=== PATIENT | male | born 1960 | race Caucasian/White ===

== ENCOUNTER 2017-10-30 17:37 | Inpatient (IN) | payer MEDICAID ==
[2017-10-30] MEDS ORDERED: ASPIRIN 325 MG TAB PO (17:45)
[2017-10-30 17:57] LABS: ADD MAN DIFF? NO
[2017-10-30 18:00] LABS: BASOPHIL # 0.1 10^3/ul (0.0-0.1); BASOPHILS % 0.5 % (0.0-2.0); EOSINOPHILS # 0.4 10^3/ul (0.0-0.5); HEMATOCRIT 44.5 % (42.0-52.0); HEMOGLOBIN 15.6 g/dl (14.0-18.0); LYMPHOCYTES % 21.3 % (15.0-51.0); MEAN CORPUSCULAR HEMOGLOBIN 31.3 pg (29.0-33.0); MEAN CORPUSCULAR HGB CONC 35.1 g/dl (32.0-37.0); MEAN CORPUSCULAR VOLUME 89.2 fl (82.0-101.0); MEAN PLATELET VOLUME 10.9 fl (7.4-10.4); MONOCYTE # 0.8 10^3/ul (0.3-0.9); MONOCYTES % 8.3 % (0.0-11.0); NEUTROPHIL # 6.1 10^3/ul (1.6-7.5); NEUTROPHILS % 65.3 % (39.0-77.0); PLATELET COUNT 251 10^3/UL (140-415); RED BLOOD COUNT 4.99 10^6/ul (4.70-6.10); RED CELL DISTRIBUTION WIDTH 13.4 % (11.5-14.5)
[2017-10-30 18:00] LABS: WHITE BLOOD COUNT 9.4 10^3/ul (4.8-10.8)
[2017-10-30] MEDS ORDERED: ALTEPLASE 100 MG INJ IV* (18:00)
[2017-10-30] MEDS ORDERED: ALTEPLASE (tPA) 1 MG/ML BOLUS SYG IV* (18:00)
[2017-10-30 18:13] LABS: HEMOGLOBIN A1C 5.9 % (0-5.9)
[2017-10-30 18:29] LABS: INR 0.85; PARTIAL THROMBOPLASTIN TIME 25.2 Sec (25.0-35.0); PROTIME 11.7 Sec (11.9-14.9); PT RATIO 0.9
[2017-10-30 18:35] LABS: ANION GAP 16 (8-16); BLOOD UREA NITROGEN 11 mg/dl (7-20); CALCIUM 9.3 mg/dl (8.4-10.2); CARBON DIOXIDE 31 mmol/L (21-31); CHLORIDE 102 mmol/L (97-110); CHOL/HDL RATIO 6.1 RATIO; CHOLESTEROL 167 mg/dl (100-200); CREATININE 1.03 mg/dl (0.61-1.24); GLUCOSE 123 mg/dl (70-220); HDL CHOLESTEROL 27 mg/dl (28-71); LDL CHOLESTEROL,CALCULATED 69 mg/dl; POTASSIUM 3.4 mmol/L (3.5-5.1); SODIUM 146 mmol/L (135-144); TRIGLYCERIDES 353 mg/dl (0-149)
[2017-10-30] MEDS: SOD CHLORIDE 0.9% 100 ML (18:42)
[2017-10-30] MEDS: IOHEXOL 100 ML (18:43)
[2017-10-30] MEDS: SOD CHLORIDE 0.9% 50 ML IV (18:43)
[2017-10-30 18:46] LABS: TROPONIN-I < 0.012 ng/ml (0.00-0.12)
[2017-10-30] MEDS: SOD CHLORIDE 0.9% 1,000 ML IV (19:10)
[2017-10-30] MEDS: ENALAPRILAT 1.25 MG INJ IV (19:48)
[2017-10-30] MEDS: ASPIRIN 300 MG SUPP PR (19:48)
[2017-10-30 20:23] LABS: ADD UMIC NO; UR ASCORBIC ACID NEGATIVE (NEGATIVE); UR BILIRUBIN (Dip) NEGATIVE (NEGATIVE); UR BLOOD (Dip) NEGATIVE (NEGATIVE); UR CLARITY CLEAR (CLEAR); UR COLOR STRAW (YELLOW); UR GLUCOSE (Dip) NEGATIVE (NEGATIVE); UR KETONES (Dip) NEGATIVE (NEGATIVE); UR LEUKOCYTE ESTERASE (Dip) NEGATIVE Leu/ul (NEGATIVE); UR NITRITE (Dip) NEGATIVE (NEGATIVE); UR SPECIFIC GRAVITY (Dip) 1.028 (1.003-1.030); UR TOTAL PROTEIN (Dip) NEGATIVE (NEGATIVE); UR UROBILINOGEN (Dip) NEGATIVE (NEGATIVE)
[2017-10-30 20:36] LABS: AMPHETAMINE/METHAMPHETAMINE Negative (NEGATIVE); BARBITURATES Negative (NEGATIVE); BENZODIAZEPINES Negative (NEGATIVE); CANNABINOIDS Negative (NEGATIVE); COCAINE Negative (NEGATIVE); OPIATES Negative (NEGATIVE)
[2017-10-31] MEDS: DEXTROSE 5%-0.45% NACL 1,000 ML IV ×3 (01:40→23:25)
[2017-10-31 03:02] LABS: TROPONIN-I < 0.012 ng/ml (0.00-0.12)
[2017-10-31 06:48] LABS: ADD MAN DIFF? NO
[2017-10-31 06:55] LABS: WHITE BLOOD COUNT 11.5 10^3/ul (4.8-10.8)
[2017-10-31 06:55] LABS: BASOPHILS % 0.3 % (0.0-2.0); EOSINOPHILS # 0.1 10^3/ul (0.0-0.5); HEMATOCRIT 40.9 % (42.0-52.0); LYMPHOCYTES # 2.4 10^3/ul (0.8-2.9); LYMPHOCYTES % 20.5 % (15.0-51.0); MEAN CORPUSCULAR HEMOGLOBIN 31.3 pg (29.0-33.0); MEAN CORPUSCULAR HGB CONC 34.2 g/dl (32.0-37.0); MEAN CORPUSCULAR VOLUME 91.3 fl (82.0-101.0); MEAN PLATELET VOLUME 11.5 fl (7.4-10.4); MONOCYTE # 0.9 10^3/ul (0.3-0.9); MONOCYTES % 7.5 % (0.0-11.0); NEUTROPHIL # 8.1 10^3/ul (1.6-7.5); NEUTROPHILS % 70.1 % (39.0-77.0); PLATELET COUNT 230 10^3/UL (140-415); RED BLOOD COUNT 4.48 10^6/ul (4.70-6.10); RED CELL DISTRIBUTION WIDTH 13.6 % (11.5-14.5)
[2017-10-31 07:15] LABS: ALANINE AMINOTRANSFERASE 22 IU/L (13-69); ALBUMIN 3.7 g/dl (3.3-4.9); ALBUMIN/GLOBULIN RATIO 1.05; ALKALINE PHOSPHATASE 107 IU/L (42-121); ANION GAP 15 (8-16); ASPARTATE AMINO TRANSFERASE 20 IU/L (15-46); BILIRUBIN,INDIRECT 0.7 mg/dl (0-1.1); BILIRUBIN,TOTAL 0.7 mg/dl (0.2-1.3); BLOOD UREA NITROGEN 10 mg/dl (7-20); CALCIUM 8.3 mg/dl (8.4-10.2); CARBON DIOXIDE 30 mmol/L (21-31); CHLORIDE 104 mmol/L (97-110); CHOL/HDL RATIO 5.9 RATIO; CHOLESTEROL 149 mg/dl (100-200); CREATININE 1.07 mg/dl (0.61-1.24); GLUCOSE 157 mg/dl (70-220); HDL CHOLESTEROL 25 mg/dl (28-71); LDL CHOLESTEROL,CALCULATED 78 mg/dl; MAGNESIUM 1.9 mg/dl (1.7-2.5); PHOSPHORUS 3.5 mg/dl (2.5-4.9); SODIUM 146 mmol/L (135-144); TOTAL PROTEIN 7.2 g/dl (6.1-8.1); TRIGLYCERIDES 229 mg/dl (0-149)
[2017-10-31 07:21] LABS: TROPONIN-I < 0.012 ng/ml (0.00-0.12)
[2017-10-31] MEDS ORDERED: DEXTROSE 50% 50 ML SYRINGE IV ×2 (07:30)
[2017-10-31] MEDS ORDERED: GLUCOSE GEL 15 GRAM TUBE BUCCAL (07:30)
[2017-10-31] MEDS ORDERED: GLUCAGON 1 MG INJ IM (07:30)
[2017-10-31] MEDS ORDERED: GLUCOSE GEL 15 GRAM TUBE PO ×2 (07:30)
[2017-10-31 07:45] LABS: POTASSIUM 2.9 mmol/L (3.5-5.1)
[2017-10-31 08:24] LABS: THYROID STIMULATING HORMONE 0.467 MIU/L (0.465-4.680)
[2017-10-31 08:51] LABS: HEMOGLOBIN A1C 5.9 % (0-5.9)
[2017-10-31] MEDS: ASPIRIN (EC) 81 MG TAB PO (09:00)
[2017-10-31] MEDS: CLONIDINE 0.2 MG/24 HR PATCH TRANSDERM (09:08)
[2017-10-31] MEDS: HEPARIN 5,000 UNIT/0.5 ML VIAL SC ×2 (09:16→21:10)
[2017-10-31] MEDS: INSULIN ASPART [NOVOLOG] 3 ML PEN SC ×4 (09:16→21:00)
[2017-10-31] MEDS: FLUTICASONE 0.05% 16 GM NAS SPRAY NASAL ×2 (09:44→21:05)
[2017-10-31] MEDS: hydrALAzine 20 MG INJ IV ×2 (11:40→21:31)
[2017-10-31] MEDS ORDERED: POTASSIUM CITRATE (SR) 5 MEQ TAB PO (13:00)
[2017-10-31] MEDS: POTASSIUM CHLORIDE (SR) 20 MEQ TAB PO ×2 (15:52→15:53)
[2017-10-31] MEDS: POTASSIUM CHLORIDE 100 ML IVPB ×3 (17:22→23:24)
[2017-10-31] MEDS: ATORVASTATIN 40 MG TAB PO ×2 (21:00→21:05)
[2017-10-31] MEDS: INSULIN GLARGINE [LANtus] 3 ML PEN SC (21:10)
[2017-11-01] MEDS: ACCU-CHEK XX (02:00)
[2017-11-01] MEDS: POTASSIUM CHLORIDE 100 ML IVPB (02:37)
[2017-11-01] MEDS: INSULIN ASPART [NOVOLOG] 3 ML PEN SC ×6 (02:54→20:55)
[2017-11-01 06:22] LABS: ADD MAN DIFF? NO
[2017-11-01 06:33] LABS: WHITE BLOOD COUNT 10.1 10^3/ul (4.8-10.8)
[2017-11-01 06:33] LABS: BASOPHILS % 0.4 % (0.0-2.0); EOSINOPHILS # 0.1 10^3/ul (0.0-0.5); EOSINOPHILS % 1.3 % (0.0-7.0); HEMATOCRIT 40.2 % (42.0-52.0); HEMOGLOBIN 13.7 g/dl (14.0-18.0); LYMPHOCYTES # 1.9 10^3/ul (0.8-2.9); LYMPHOCYTES % 18.7 % (15.0-51.0); MEAN CORPUSCULAR HEMOGLOBIN 31.1 pg (29.0-33.0); MEAN CORPUSCULAR HGB CONC 34.1 g/dl (32.0-37.0); MEAN CORPUSCULAR VOLUME 91.2 fl (82.0-101.0); MEAN PLATELET VOLUME 11.5 fl (7.4-10.4); MONOCYTE # 0.9 10^3/ul (0.3-0.9); NEUTROPHIL # 7.1 10^3/ul (1.6-7.5); NEUTROPHILS % 70.3 % (39.0-77.0); PLATELET COUNT 208 10^3/UL (140-415); RED BLOOD COUNT 4.41 10^6/ul (4.70-6.10); RED CELL DISTRIBUTION WIDTH 13.4 % (11.5-14.5)
[2017-11-01 07:05] LABS: ANION GAP 12 (8-16); BLOOD UREA NITROGEN 8 mg/dl (7-20); CALCIUM 8.6 mg/dl (8.4-10.2); CARBON DIOXIDE 27 mmol/L (21-31); CHLORIDE 108 mmol/L (97-110); CREATININE 0.97 mg/dl (0.61-1.24); GLUCOSE 145 mg/dl (70-220); MAGNESIUM 1.8 mg/dl (1.7-2.5); POTASSIUM 3.3 mmol/L (3.5-5.1); SODIUM 144 mmol/L (135-144)
[2017-11-01] MEDS: DEXTROSE 5%-0.45% NACL 1,000 ML IV ×3 (07:30→21:45)
[2017-11-01] MEDS: ALBUTEROL/IPRATROPIUM (NEB) 3 ML AMP HHN ×3 (07:37→21:17)
[2017-11-01] MEDS: FLUTICASONE 0.05% 16 GM NAS SPRAY NASAL ×2 (08:43→20:56)
[2017-11-01] MEDS: ASPIRIN (EC) 81 MG TAB PO (08:43)
[2017-11-01] MEDS: HEPARIN 5,000 UNIT/0.5 ML VIAL SC ×2 (09:01→21:01)
[2017-11-01] MEDS: BARIUM SULFATE 135 ML (E-Z HD) PO (10:39)
[2017-11-01] MEDS: hydrALAzine 20 MG INJ IV (16:37)
[2017-11-01] MEDS: POTASSIUM CHLORIDE 50 ML IVPB ×2 (18:50→21:03)
[2017-11-01] MEDS: ATORVASTATIN 40 MG TAB PO (20:57)
[2017-11-01] MEDS: INSULIN GLARGINE [LANtus] 3 ML PEN SC (21:00)
[2017-11-02] MEDS: INSULIN ASPART [NOVOLOG] 3 ML PEN SC ×6 (01:00→21:00)
[2017-11-02] MEDS: ACCU-CHEK XX (01:29)
[2017-11-02 06:31] LABS: ADD MAN DIFF? NO
[2017-11-02 06:36] LABS: WHITE BLOOD COUNT 8.8 10^3/ul (4.8-10.8)
[2017-11-02 06:36] LABS: BASOPHILS % 0.3 % (0.0-2.0); EOSINOPHILS # 0.2 10^3/ul (0.0-0.5); EOSINOPHILS % 1.9 % (0.0-7.0); HEMATOCRIT 38.7 % (42.0-52.0); HEMOGLOBIN 13.3 g/dl (14.0-18.0); LYMPHOCYTES # 1.6 10^3/ul (0.8-2.9); LYMPHOCYTES % 18.5 % (15.0-51.0); MEAN CORPUSCULAR HEMOGLOBIN 31.1 pg (29.0-33.0); MEAN CORPUSCULAR HGB CONC 34.4 g/dl (32.0-37.0); MEAN CORPUSCULAR VOLUME 90.6 fl (82.0-101.0); MEAN PLATELET VOLUME 11.4 fl (7.4-10.4); MONOCYTE # 0.8 10^3/ul (0.3-0.9); MONOCYTES % 9.2 % (0.0-11.0); NEUTROPHIL # 6.1 10^3/ul (1.6-7.5); NEUTROPHILS % 69.8 % (39.0-77.0); PLATELET COUNT 195 10^3/UL (140-415); RED BLOOD COUNT 4.27 10^6/ul (4.70-6.10); RED CELL DISTRIBUTION WIDTH 13.7 % (11.5-14.5)
[2017-11-02 07:02] LABS: ANION GAP 13 (8-16); BLOOD UREA NITROGEN 7 mg/dl (7-20); CALCIUM 8.6 mg/dl (8.4-10.2); CARBON DIOXIDE 24 mmol/L (21-31); CHLORIDE 109 mmol/L (97-110); CREATININE 0.93 mg/dl (0.61-1.24); GLUCOSE 145 mg/dl (70-220); SODIUM 143 mmol/L (135-144)
[2017-11-02 08:09] LABS: MAGNESIUM 1.8 mg/dl (1.7-2.5)
[2017-11-02 08:21] LABS: TROPONIN-I < 0.012 ng/ml (0.00-0.12)
[2017-11-02] MEDS: DEXTROSE 5%-0.45% NACL 1,000 ML IV ×3 (08:27→18:32)
[2017-11-02] MEDS: ASPIRIN (EC) 81 MG TAB PO (08:31)
[2017-11-02] MEDS: FLUTICASONE 0.05% 16 GM NAS SPRAY NASAL ×2 (08:32→21:06)
[2017-11-02] MEDS: HEPARIN 5,000 UNIT/0.5 ML VIAL SC ×2 (08:40→21:07)
[2017-11-02] MEDS: hydrALAzine 20 MG INJ IV (11:51)
[2017-11-02] MEDS: POTASSIUM CHLORIDE 20 MEQ POWDER FOR ORAL SOLN PO (14:06)
[2017-11-02] MEDS: ATORVASTATIN 40 MG TAB PO (21:06)
[2017-11-02 22:15] LABS: ERYTHROCYTE SEDIMENTATION RATE 5 mm/Hr (0-20)
[2017-11-03] MEDS: ACCU-CHEK XX (02:00)
[2017-11-03] MEDS: DEXTROSE 5%-0.45% NACL 1,000 ML IV (04:57)
[2017-11-03] MEDS: INSULIN ASPART [NOVOLOG] 3 ML PEN SC ×4 (07:55→20:21)
[2017-11-03] MEDS: hydrALAzine 20 MG INJ IV (08:09)
[2017-11-03] MEDS: ASPIRIN (EC) 81 MG TAB PO (08:09)
[2017-11-03] MEDS: FLUTICASONE 0.05% 16 GM NAS SPRAY NASAL ×2 (08:09→20:22)
[2017-11-03] MEDS: HEPARIN 5,000 UNIT/0.5 ML VIAL SC ×2 (08:13→20:21)
[2017-11-03 08:24] LABS: ADD MAN DIFF? NO
[2017-11-03 08:31] LABS: BASOPHILS % 0.4 % (0.0-2.0); EOSINOPHILS # 0.5 10^3/ul (0.0-0.5); EOSINOPHILS % 5.7 % (0.0-7.0); HEMATOCRIT 41.5 % (42.0-52.0); HEMOGLOBIN 14.1 g/dl (14.0-18.0); LYMPHOCYTES # 1.7 10^3/ul (0.8-2.9); LYMPHOCYTES % 18.9 % (15.0-51.0); MEAN CORPUSCULAR HEMOGLOBIN 31.4 pg (29.0-33.0); MEAN CORPUSCULAR VOLUME 92.4 fl (82.0-101.0); MEAN PLATELET VOLUME 11.8 fl (7.4-10.4); MONOCYTE # 0.7 10^3/ul (0.3-0.9); MONOCYTES % 7.6 % (0.0-11.0); NEUTROPHIL # 6.2 10^3/ul (1.6-7.5); PLATELET COUNT 213 10^3/UL (140-415); RED BLOOD COUNT 4.49 10^6/ul (4.70-6.10); RED CELL DISTRIBUTION WIDTH 13.7 % (11.5-14.5)
[2017-11-03 08:31] LABS: WHITE BLOOD COUNT 9.2 10^3/ul (4.8-10.8)
[2017-11-03 08:50] LABS: PHOSPHORUS 3.1 mg/dl (2.5-4.9)
[2017-11-03 08:50] LABS: MAGNESIUM 1.9 mg/dl (1.7-2.5)
[2017-11-03 08:52] LABS: ANION GAP 19 (8-16); BLOOD UREA NITROGEN 7 mg/dl (7-20); CARBON DIOXIDE 23 mmol/L (21-31); CHLORIDE 106 mmol/L (97-110); CREATININE 0.95 mg/dl (0.61-1.24); GLUCOSE 139 mg/dl (70-220); POTASSIUM 3.5 mmol/L (3.5-5.1); SODIUM 144 mmol/L (135-144)
[2017-11-03 15:23] LABS: RAPID PLASMA REAGIN NONREACTIVE (NR)
[2017-11-03] MEDS: metFORMIN 500 MG TAB PO (17:30)
[2017-11-03] MEDS: ATORVASTATIN 40 MG TAB PO (20:16)
[2017-11-03] MEDS: BENAZEPRIL 5 MG TAB PO (20:17)
[2017-11-03] MEDS: ALBUTEROL/IPRATROPIUM (NEB) 3 ML AMP HHN (23:30)
[2017-11-04] MEDS: ACCU-CHEK XX (00:23)
[2017-11-04] MEDS: COLCHICINE 0.6 MG TAB PO (00:23)
[2017-11-04 01:30] LABS: URIC ACID 6.9 mg/dl (3.1-7.9)
[2017-11-04] MEDS: traMADol 50 MG TAB PO ×2 (06:18→21:53)
[2017-11-04 07:11] LABS: ADD MAN DIFF? NO
[2017-11-04 07:15] LABS: WHITE BLOOD COUNT 9.3 10^3/ul (4.8-10.8)
[2017-11-04 07:15] LABS: BASOPHIL # 0.1 10^3/ul (0.0-0.1); BASOPHILS % 0.5 % (0.0-2.0); EOSINOPHILS # 0.5 10^3/ul (0.0-0.5); EOSINOPHILS % 5.1 % (0.0-7.0); HEMATOCRIT 39.9 % (42.0-52.0); HEMOGLOBIN 13.3 g/dl (14.0-18.0); LYMPHOCYTES # 1.7 10^3/ul (0.8-2.9); LYMPHOCYTES % 17.8 % (15.0-51.0); MEAN CORPUSCULAR HEMOGLOBIN 30.5 pg (29.0-33.0); MEAN CORPUSCULAR HGB CONC 33.3 g/dl (32.0-37.0); MEAN CORPUSCULAR VOLUME 91.5 fl (82.0-101.0); MEAN PLATELET VOLUME 11.7 fl (7.4-10.4); MONOCYTE # 0.8 10^3/ul (0.3-0.9); MONOCYTES % 8.5 % (0.0-11.0); NEUTROPHIL # 6.3 10^3/ul (1.6-7.5); NEUTROPHILS % 67.8 % (39.0-77.0); PLATELET COUNT 225 10^3/UL (140-415); RED BLOOD COUNT 4.36 10^6/ul (4.70-6.10); RED CELL DISTRIBUTION WIDTH 13.4 % (11.5-14.5)
[2017-11-04 07:33] LABS: MAGNESIUM 1.9 mg/dl (1.7-2.5)
[2017-11-04 07:33] LABS: PHOSPHORUS 3.9 mg/dl (2.5-4.9)
[2017-11-04 07:36] LABS: ANION GAP 14 (8-16); BLOOD UREA NITROGEN 11 mg/dl (7-20); CALCIUM 8.9 mg/dl (8.4-10.2); CARBON DIOXIDE 25 mmol/L (21-31); CHLORIDE 109 mmol/L (97-110); CREATININE 1.05 mg/dl (0.61-1.24); GLUCOSE 142 mg/dl (70-220); POTASSIUM 3.2 mmol/L (3.5-5.1); SODIUM 145 mmol/L (135-144)
[2017-11-04] MEDS: INSULIN ASPART [NOVOLOG] 3 ML PEN SC ×4 (07:55→21:00)
[2017-11-04] MEDS: HEPARIN 5,000 UNIT/0.5 ML VIAL SC ×2 (09:00→21:50)
[2017-11-04] MEDS: predniSONE 20 MG TAB PO (10:03)
[2017-11-04] MEDS: ASPIRIN (EC) 81 MG TAB PO (10:03)
[2017-11-04] MEDS: BENAZEPRIL 5 MG TAB PO (10:03)
[2017-11-04] MEDS: metFORMIN 500 MG TAB PO ×2 (10:04→17:56)
[2017-11-04] MEDS: FLUTICASONE 0.05% 16 GM NAS SPRAY NASAL ×2 (10:04→21:43)
[2017-11-04] MEDS: BARIUM SULFATE 135 ML (E-Z HD) PO (11:24)
[2017-11-04] MEDS: POTASSIUM CHLORIDE (SR) 20 MEQ TAB PO (16:41)
[2017-11-04] MEDS: hydrALAzine 20 MG INJ IV (17:53)
[2017-11-04] MEDS: ATORVASTATIN 40 MG TAB PO (21:43)
[2017-11-04] MEDS: BENAZEPRIL 10 MG TAB PO (21:44)
[2017-11-05] MEDS: ACCU-CHEK XX (02:00)
[2017-11-05] MEDS: traMADol 50 MG TAB PO ×2 (04:40→14:32)
[2017-11-05] MEDS: BISACODYL 10 MG SUPP PR (04:46)
[2017-11-05] MEDS: INSULIN ASPART [NOVOLOG] 3 ML PEN SC ×3 (07:55→17:56)
[2017-11-05] MEDS: ASPIRIN (EC) 81 MG TAB PO (08:32)
[2017-11-05] MEDS: predniSONE 20 MG TAB PO (08:32)
[2017-11-05] MEDS: metFORMIN 500 MG TAB PO ×2 (08:32→17:45)
[2017-11-05] MEDS: BENAZEPRIL 10 MG TAB PO (08:33)
[2017-11-05] MEDS: FLUTICASONE 0.05% 16 GM NAS SPRAY NASAL (08:33)
[2017-11-05] MEDS: HEPARIN 5,000 UNIT/0.5 ML VIAL SC (08:36)
[2017-11-05 08:56] LABS: ADD MAN DIFF? NO
[2017-11-05 09:00] LABS: BASOPHILS % 0.3 % (0.0-2.0); EOSINOPHILS # 0.1 10^3/ul (0.0-0.5); EOSINOPHILS % 0.5 % (0.0-7.0); HEMATOCRIT 40.2 % (42.0-52.0); HEMOGLOBIN 13.5 g/dl (14.0-18.0); LYMPHOCYTES % 19.1 % (15.0-51.0); MEAN CORPUSCULAR HEMOGLOBIN 31.4 pg (29.0-33.0); MEAN CORPUSCULAR HGB CONC 33.6 g/dl (32.0-37.0); MEAN CORPUSCULAR VOLUME 93.5 fl (82.0-101.0); MEAN PLATELET VOLUME 11.9 fl (7.4-10.4); MONOCYTES % 9.7 % (0.0-11.0); NEUTROPHIL # 7.2 10^3/ul (1.6-7.5); NEUTROPHILS % 69.8 % (39.0-77.0); PLATELET COUNT 248 10^3/UL (140-415); RED CELL DISTRIBUTION WIDTH 13.7 % (11.5-14.5)
[2017-11-05 09:00] LABS: WHITE BLOOD COUNT 10.4 10^3/ul (4.8-10.8)
[2017-11-05 09:34] LABS: ANION GAP 16 (8-16); BLOOD UREA NITROGEN 17 mg/dl (7-20); CALCIUM 8.9 mg/dl (8.4-10.2); CARBON DIOXIDE 25 mmol/L (21-31); CHLORIDE 107 mmol/L (97-110); CREATININE 1.08 mg/dl (0.61-1.24); GLUCOSE 107 mg/dl (70-220); POTASSIUM 3.3 mmol/L (3.5-5.1); SODIUM 145 mmol/L (135-144)
[2017-11-05 09:35] LABS: MAGNESIUM 2.2 mg/dl (1.7-2.5)
[2017-11-05 09:35] LABS: PHOSPHORUS 4.1 mg/dl (2.5-4.9)
[2017-11-05 10:05] LABS: URIC ACID 8.2 mg/dl (3.1-7.9)
[2017-11-05] MEDS: POTASSIUM CHLORIDE (SR) 20 MEQ TAB PO (12:32)
== END 2017-11-05 19:17 | disposition home health service (06) | DRG 65 ==
LOC: TEL 22:37 → E/R 17:37 → TEL 10-31 00:42
PROVIDERS: Internal Medicine
DX: I63.9 Cerebral infarction, unspecified (principal); I16.1 Hypertensive emergency; R13.13 Dysphagia, pharyngeal phase; I72.6 Aneurysm of vertebral artery; E11.9 Type 2 diabetes mellitus without complications; I10 Essential (primary) hypertension; R29.810 Facial weakness; R47.02 Dysphasia; R09.81 Nasal congestion; E78.5 Hyperlipidemia, unspecified; Z79.4 Long term (current) use of insulin; Z79.82 Long term (current) use of aspirin; Z79.84 Long term (current) use of oral hypoglycemic drugs; Z87.891 Personal history of nicotine dependence
CPT/HCPCS: 36415; 70450; 70496; 70498; 70551; 71045; 73562; 74230; 80048; 80053; 80061; 80307; 81003; 82962; 83036; 83735; 84100; 84443; 84484; 84560; 85025; 85610; 85651; 85730; 86592; 86850; 86900; 86901; 92526; 92610; 92611; 93005; 93306; 94640; 94664; 96374; 97161; 99291-25